=== PATIENT | male | born 1995 | race Two or more races ===

== ENCOUNTER 2018-07-02 21:48 | Emergency (ER) | payer OTHER ==
[2018-07-02] MEDS ORDERED: ACETAMINOPHEN 500 MG TAB PO ONE (22:08)
[2018-07-02] MEDS ORDERED: NS 1,000 ML IV ONE (22:08)
[2018-07-02] MEDS ORDERED: KETOROLAC 15 MG/1 ML SDV IVP ONE (22:08)
--- NOTE | 2018-07-02 22:12 | EDPHY ---
H & P Stated Complaint: fEELS SICK X 1 DAY Time Seen by Provider: 07/02/18 22:00 HPI/ROS: HPI The patient presents with sore throat, headache, fever, myalgias, mild cough. Symptoms started predominantly today. However, 3 days ago he felt generally unwell and had some episodes of vomiting after exercise. The sore throat is mostly on the left, achy in nature, associated with left-sided neck pain. He is able to swallow and tolerate his secretions. He has had a subjective fever at home. He has a very mild nonproductive cough. He does not have any abdominal pain. His muscles are diffusely sore. He does not have any sick contacts. He did not get a flu shot this year. He is healthy otherwise and has not taken any medications for this. REVIEW OF SYSTEMS 10 systems were reviewed and negative with the exception of the elements mentioned in the history of present illness. PMHx: Healthy, no asthma, no diabetes Soc Hx: College student PHYSICAL General Appearance: Alert, no distress Eyes: Pupils equal and round no pallor or injection ENT, Mouth: Mucous membranes moist, posterior pharynx erythematous with mild left-sided anterior lymphadenopathy Respiratory: There are no retractions, lungs are clear to auscultation Cardiovascular: Regular rate and rhythm Gastrointestinal: Abdomen is soft and non-tender, no masses, bowel sounds normal Neurological: A&O, moves all extremities Skin: Warm and dry, no rashes Musculoskeletal: Neck is supple non tender Extremities: symmetrical, full range of motion Psychiatric: Patient is oriented X 3, there is no agitation Source: Patient Exam Limitations: No limitations - Personal History Current Tetanus Diphtheria and Acellular Pertussis (TDAP): Yes - Medical/Surgical History Hx Asthma: No Hx Chronic Respiratory Disease: No Hx Diabetes: No Hx Cardiac Disease: No Hx Renal Disease: No Hx Cirrhosis: No Hx Alcoholism: No Hx HIV/AIDS: No Hx Splenectomy or Spleen Trauma: No Other PMH: denies - Social History Smoking Status: Never smoked Constitutional: Initial Vital Signs Temperature (C) 38 C 07/02/18 21:52 Heart Rate 107 H 07/02/18 21:52 Respiratory Rate 18 07/02/18 21:52 Blood Pressure 153/67 H 07/02/18 21:52 O2 Sat (%) 94 07/02/18 21:52 O2 Delivery Mode Room Air Allergies/Adverse Reactions: No Known Allergies Allergy (Unverified 07/02/18 21:52) Home Medications: Medication Instructions Recorded NK [No Known Home Meds] 07/02/18 Medical Decision Making Differential Diagnosis: 22-year-old healthy male presents with 1 day of sore throat, neck pain, headache , myalgias and fever. On exam, his posterior pharynx is erythematous, he does not have any exudates, he does have lymphadenopathy, his neck is supple without any photophobia. Differential diagnosis includes mononucleosis, influenza, strep pharyngitis, viral pharyngitis. In the emergency department, labs were unremarkable. Patient felt better after IV fluids and medication. He was discharged home. I feel he is likely suffering from a viral illness and have discussed diagnosis and treatment with him. - Data Points Laboratory Results: Laboratory Results 07/02/18 22:18 07/02/18 22:18 07/02/18 07/02/18 07/02/18 Unknown 22:18 22:18 WBC RBC Hgb Hct MCV MCH MCHC RDW Plt Count MPV Neut % (Auto) Lymph % (Auto) Gregg % (Auto) Eos % (Auto) Baso % (Auto) Nucleat RBC Rel Count Absolute Neuts (auto) Absolute Lymphs (auto) Absolute Monos (auto) Absolute Eos (auto) Absolute Basos (auto) Absolute Nucleated RBC Immature Gran % Immature Gran # Sodium 135 mEq/L mEq/L (135-145) Potassium 3.7 mEq/L mEq/L (3.3-5.0) Chloride 99 mEq/L mEq/L (97-110) Carbon Dioxide 24 mEq/l mEq/l (22-31) Anion Gap 12 mEq/L mEq/L (8-16) BUN 16 mg/dL mg/dL (7-23) Creatinine 1.0 mg/dL mg/dL (0.7-1.3) Estimated GFR > 60 Glucose 80 mg/dL mg/dL (70-100) Calcium 9.7 mg/dL mg/dL (8.5-10.4) Total Bilirubin 0.5 mg/dL mg/dL (0.1-1.4) AST 23 IU/L IU/L (17-59) ALT 32 IU/L IU/L (21-72) Alkaline Phosphatase 68 IU/L IU/L (38-126) Total Protein 7.5 g/dL g/dL (6.3-8.2) Albumin 4.7 g/dL g/dL (3.5-5.0) Nasal Influenza A PCR Nasal Influenza B PCR Monoscreen NEGATIVE (NEGATIVE) Group A Strep Screen Group A Strep DNA Pending 07/02/18 07/02/18 22:18 22:10 WBC 11.11 10^3/uL H 10^3/uL (3.80-9.50) RBC 4.81 10^6/uL 10^6/uL (4.40-6.38) Hgb 15.0 g/dL g/dL (13.7-17.5) Hct 42.3 % % (40.0-51.0) MCV 87.9 fL fL (81.5-99.8) MCH 31.2 pg pg (27.9-34.1) MCHC 35.5 g/dL g/dL (32.4-36.7) RDW 11.9 % % (11.5-15.2) Plt Count 244 10^3/uL 10^3/uL (150-400) MPV 10.2 fL fL (8.7-11.7) Neut % (Auto) 73.2 % % (39.3-74.2) Lymph % (Auto) 14.8 % L % (15.0-45.0) Gregg % (Auto) 10.6 % % (4.5-13.0) Eos % (Auto) 0.2 % L % (0.6-7.6) Baso % (Auto) 0.7 % % (0.3-1.7) Nucleat RBC Rel Count 0.0 % % (0.0-0.2) Absolute Neuts (auto) 8.13 10^3/uL H 10^3/uL (1.70-6.50) Absolute Lymphs (auto) 1.64 10^3/uL 10^3/uL (1.00-3.00) Absolute Monos (auto) 1.18 10^3/uL H 10^3/uL (0.30-0.80) Absolute Eos (auto) 0.02 10^3/uL L 10^3/uL (0.03-0.40) Absolute Basos (auto) 0.08 10^3/uL 10^3/uL (0.02-0.10) Absolute Nucleated RBC 0.00 10^3/uL 10^3/uL (0-0.01) Immature Gran % 0.5 % % (0.0-1.1) Immature Gran # 0.06 10^3/uL 10^3/uL (0.00-0.10) Sodium Potassium Chloride Carbon Dioxide Anion Gap BUN Creatinine Estimated GFR Glucose Calcium Total Bilirubin AST ALT Alkaline Phosphatase Total Protein Albumin Nasal Influenza A PCR NEGATIVE FOR FLU A (NEGATIVE) Nasal Influenza B PCR NEGATIVE FOR FLU B (NEGATIVE) Monoscreen Group A Strep Screen NEGATIVE (NEGATIVE) Group A Strep DNA Medications Given: Discontinued Medications Acetaminophen (Tylenol) 1,000 mg PO EDNOW ONE Stop: 07/02/18 22:09 Last Admin: 07/02/18 22:19 Dose: 1,000 mg Sodium Chloride (Ns) 1,000 mls @ 0 mls/hr IV EDNOW ONE; Wide Open PRN Reason: Protocol Stop: 07/02/18 22:09 Last Admin: 07/02/18 22:17 Dose: 1,000 mls Ketorolac Tromethamine (Toradol) 15 mg IVP EDNOW ONE Stop: 07/02/18 22:09 Last Admin: 07/02/18 22:20 Dose: 15 mg Departure - Departure Disposition: Home, Routine, Self-Care Clinical Impression: Sore throat Fever Qualifiers: Fever type: unspecified Qualified Code(s): R50.9 - Fever, unspecified Condition: Good Instructions: Upper Respiratory Infection (ED) Additional Instructions: Please return to the emergency department if your worse in any way. I recommend you drink plenty of fluids and take ibuprofen 400 mg with acetaminophen 650 mg. [facility] [Clinic] - As per Instructions Stand Alone Forms: School Excuse
[2018-07-02 22:28] LABS: PLATELET COUNT 244 10^3/uL (150-400)
[2018-07-02 23:27] VITALS: BP 119/74
== END 2018-07-02 23:26 | disposition home or self-care (01) ==
DX: J02.9 Acute pharyngitis, unspecified (principal)
CPT/HCPCS: J1885